=== PATIENT | female | born 1950 | race Caucasian/White ===

== ENCOUNTER 2020-10-08 07:00 | Outpatient (REF) | payer MEDICARE, SELFPAY ==
[2020-10-08 07:45] LABS: MANUAL DIFF FLAG NO
[2020-10-08 07:47] LABS: Basophils Absolute Auto 0.1 X10*3/uL (0.0-0.2); Basophils Percent Auto 1.1 % (0-2); Eosinophils Absolute Auto 0.1 X10*3/uL (0.0-0.4); Eosinophils Percent Auto 1.5 % (0-4); Imm Gran Abs Auto 0.02 X10*3/uL (0.00-0.03); Imm Gran Pct Auto 0.4 % (0.0-0.4); Lymphocytes Absolute Auto 1.4 X10*3/uL (1.2-4.9); Lymphocytes Percent Auto 25.9 % (20-40); Mean Corpuscular HGB Conc 34.1 g/dl (31.0-35.0); Mean Corpuscular Hemoglobin 29.5 pg (27.0-33.0); Mean Corpuscular Volume 86.6 fL (80-98); Mean Platelet Volume 9.9 fL (9.4-12.3); Monocytes Absolute Auto 0.6 X10*3/uL (0.1-1.2); Neutrophils Absolute Auto 3.4 X10*3/uL (2.0-8.3); Neutrophils Percent Auto 61.1 % (45-73); Platelet Count 321 X10*3/uL (160-400); Red Blood Count 5.08 X10*6/uL (4.20-5.50); Red Cell Distribution Width 12.3 % (11.0-16.0); White Blood Count 5.5 X10*3/uL (4.8-10.8)
[2020-10-08 07:57] LABS: Glucose Urine UA NEG (NEG); Leukocyte Esterase Urine NEG (NEG); Nitrite Urine NEG (NEG); PH 5.5 (5.0-8.0); Specific Gravity - Urine 1.025 (1.005-1.025); Urine Blood NEG (NEG); Urine Ketones NEG (NEG); Urine Protein NEG (NEG-TRACE)
[2020-10-08 07:58] LABS: Appearance Urine CLEAR; Color Urine YELLOW
[2020-10-08 08:52] LABS: Alanine Aminotransferase 27 U/L (0-31); Albumin Level 4.4 g/dL (3.5-5.0); Alkaline Phosphatase 74 U/L (39-117); Anion Gap 13 (12-20); Aspartate Amino Transferase 22 U/L (5-31); Bilirubin Total 0.8 mg/dL (0.0-1.0); Blood Urea Nitrogen 19 mg/dL (9-16); Calcium 9.1 mg/dL (8.4-10.2); Carbon Dioxide 27 mmol/L (22-29); Chloride 102 mmol/L (96-108); Cholesterol 171 mg/dL; Estimated Glomerular Filt Rate > 60; Glucose Fasting 105 mg/dL (60-99); HDL Cholesterol 51 mg/dL; LDL Cholesterol Calculated 103 mg/dl; Potassium 4.6 mmol/L (3.3-5.1); Sodium 137 mmol/L (135-145); Triglycerides 86 mg/dL
[2020-10-08 09:14] LABS: Thyroid Stimulating Hormone 1.56 uIU/mL (0.32-4.0)
== END 2020-10-08 07:01 | disposition home or self-care (01) ==
LOC: HO.LAB 07:00
PROVIDERS: Absent Provider Registered Nurse; PCP Internal Medicine; Visit Provider Internal Medicine
DX: Z00.00 Encounter for general adult medical examination without abnormal findings (principal); I10 Essential (primary) hypertension; E78.00 Pure hypercholesterolemia, unspecified; M89.49 Other hypertrophic osteoarthropathy, multiple sites
CPT/HCPCS: 36415; 80053; 80061; 81003; 84443; 85025; 86850; 86900; 86901

== ENCOUNTER → 2021-04-20 10:06 | Outpatient (BNVA) | payer MEDICARE, SELFPAY | PROVIDERS: Visit Provider Advanced Practice Midwife ==

== ENCOUNTER 2021-05-02 07:29 | Outpatient (REF) | payer MEDICARE, SELFPAY ==
--- NOTE | ~2021-05-02 | MM_ITS ---
EXAMINATION: MM SCREENING DIGITAL BREAST TOMOSYNTHESIS, BILATERAL CLINICAL INFORMATION: Screening. Asymptomatic. The lifetime risk of breast cancer based on the Tyrer-Cuzick Model is 3%. COMPARISON: Mammography: April 29, 2020 and studies dating back to February 27, 2014 TECHNIQUE: Digital breast tomosynthesis is performed in both the craniocaudal and mediolateral oblique views along with computer-aided detection (CAD). Synthesized 2D images are generated from the tomosynthesis. FINDINGS: There are scattered areas of fibroglandular density (ACR BI-RADS breast composition Category b). There are no significant masses, abnormal calcifications, or other abnormalities. MM/MM tomosynthesis screening BI IMPRESSION: There are no significant changes from prior study. ASSESSMENT: BI-RADS 1: Negative RECOMMENDATION: Routine annual mammography screening. This patient's information was entered into a reminder system with a target due date for their next mammogram.
== END 2021-05-02 07:30 | disposition home or self-care (01) ==
LOC: HO.MAMMO 07:29
PROVIDERS: PCP Internal Medicine; Visit Provider Internal Medicine
DX: Z12.31 Encounter for screening mammogram for malignant neoplasm of breast (principal)
CPT/HCPCS: 77063; 77067

== ENCOUNTER 2022-05-05 07:25 | Outpatient (REF) | payer MEDICARE, SELFPAY ==
--- NOTE | ~2022-05-05 | MM_ITS ---
EXAMINATION: MM SCREENING DIGITAL BREAST TOMOSYNTHESIS, BILATERAL CLINICAL INFORMATION: Screening. Asymptomatic. The lifetime risk of breast cancer based on the Tyrer-Cuzick Model is 3%. COMPARISON: Mammography: 05/02/2021, 04/29/2020, 04/23/2019 TECHNIQUE: Digital breast tomosynthesis is performed in both the craniocaudal and mediolateral oblique views along with computer-aided detection (CAD). Synthesized 2D images are generated from the tomosynthesis. FINDINGS: There are scattered areas of fibroglandular density (ACR BI-RADS breast composition Category b). There are no significant masses, abnormal calcifications, or other abnormalities. Parenchymal pattern is similar to prior studies. There is no developing density or architectural abnormality. The axilla are unremarkable. Oval dermal lesion again seen overlying the upper left breast on MLO view similar to prior studies. MM/MM tomosynthesis screening BI IMPRESSION: No mammographic evidence of malignancy. ASSESSMENT: BI-RADS 2: Benign RECOMMENDATION: Routine annual mammography screening. This patient's information was entered into a reminder system with a target due date for their next mammogram.
== END 2022-05-05 07:26 | disposition home or self-care (01) ==
LOC: HO.MAMMO 07:25
PROVIDERS: PCP Internal Medicine; Visit Provider Internal Medicine
DX: Z12.31 Encounter for screening mammogram for malignant neoplasm of breast (principal)
CPT/HCPCS: 77063; 77067

== ENCOUNTER 2022-06-02 07:03 | Outpatient (REF) | payer MEDICARE, SELFPAY ==
[2022-06-02 07:18] LABS: MANUAL DIFF FLAG NO
[2022-06-02 07:48] LABS: Appearance Urine Clear; Color Urine Yellow; Glucose Urine UA Negative (Negative); Leukocyte Esterase Urine Negative (Negative); Nitrite Urine Negative (Negative); Specific Gravity - Urine 1.015 (1.005-1.025); Urine Blood Negative (Negative); Urine Ketones Negative (Negative); Urine Protein Negative (Neg-Trace)
[2022-06-02 07:48] LABS: Basophils Absolute Auto 0.1 X10*3/uL (0.0-0.2); Basophils Percent Auto 0.9 % (0-2); Eosinophils Absolute Auto 0.1 X10*3/uL (0.0-0.4); Eosinophils Percent Auto 1.2 % (0-4); Hemoglobin 15.7 g/dl (12.0-16.0); Imm Gran Abs Auto 0.02 X10*3/uL (0.00-0.03); Imm Gran Pct Auto 0.4 % (0.0-0.4); Lymphocytes Absolute Auto 1.4 X10*3/uL (1.2-4.9); Lymphocytes Percent Auto 25.3 % (20-40); Mean Corpuscular HGB Conc 34.1 g/dl (31.0-35.0); Mean Corpuscular Hemoglobin 29.3 pg (27.0-33.0); Mean Platelet Volume 9.4 fL (9.4-12.3); Monocytes Absolute Auto 0.6 X10*3/uL (0.1-1.2); Monocytes Percent Auto 10.6 % (2-11); Neutrophils Absolute Auto 3.5 x10*3/uL (2.0-8.3); Neutrophils Percent Auto 61.6 % (45-73); Platelet Count 312 X10*3/uL (160-400); Red Blood Count 5.35 X10*6/uL (4.20-5.50); Red Cell Distribution Width 12.7 % (11.0-16.0); White Blood Count 5.7 X10*3/uL (4.8-10.8)
[2022-06-02 08:11] LABS: Alanine Aminotransferase 29 U/L (0-31); Albumin Level 4.4 g/dL (3.5-5.0); Alkaline Phosphatase 77 U/L (39-117); Anion Gap 16 (12-20); Aspartate Amino Transferase 25 U/L (5-31); Blood Urea Nitrogen 10 mg/dL (9-16); Calcium 9.6 mg/dL (8.4-10.2); Carbon Dioxide 26 mmol/L (22-29); Chloride 100 mmol/L (96-108); Cholesterol 183 mg/dL; Estimated Glomerular Filt Rate > 60; Glucose Random 104 mg/dL (60-115); HDL Cholesterol 49 mg/dL; LDL Cholesterol Calculated 111 mg/dl; Potassium 4.6 mmol/L (3.3-5.1); Sodium 137 mmol/L (135-145); Total Protein 7.1 g/dL (6.5-8.0); Triglycerides 116 mg/dL
[2022-06-02 08:25] LABS: Estimated Average Glucose 108 mg/dL; Hemoglobin A1c % 5.4 %
[2022-06-02 08:35] LABS: Free T4 (Free Thyroxine) 1.23 ng/dL (0.71-1.85); Thyroid Stimulating Hormone 1.33 uIU/mL (0.32-4.0)
== END 2022-06-02 07:04 | disposition home or self-care (01) ==
LOC: HO.LAB 07:03
PROVIDERS: PCP Internal Medicine; Visit Provider Internal Medicine
DX: I10 Essential (primary) hypertension (principal); M15.9 Polyosteoarthritis, unspecified; E78.00 Pure hypercholesterolemia, unspecified; E03.9 Hypothyroidism, unspecified; R73.01 Impaired fasting glucose
CPT/HCPCS: 36415; 80053; 80061; 81003; 83036; 84439; 84443; 85025

== ENCOUNTER 2022-06-22 11:00 | Outpatient (REF) | payer MEDICARE, SELFPAY ==
[2022-06-24 00:42] LABS: HPV mRNA E6/E7 rflx Not Detected (Not Detected)
== END 2022-06-22 11:01 | disposition home or self-care (01) ==
LOC: HO.LNP 11:00
PROVIDERS: Visit Provider Advanced Practice Midwife
DX: Z01.419 Encounter for gynecological examination (general) (routine) without abnormal findings (principal)
CPT/HCPCS: 87624; 88142

== ENCOUNTER 2023-05-09 07:30 | Outpatient (REF) | payer MEDICARE, SELFPAY | END 2023-05-09 07:31 | disposition home or self-care (01) | LOC: HO.MAMMO 07:30 | PROVIDERS: PCP Internal Medicine; Visit Provider Internal Medicine | DX: Z12.31 Encounter for screening mammogram for malignant neoplasm of breast (principal) | CPT/HCPCS: 77063; 77067 ==

== ENCOUNTER → 2023-05-09 07:30 | Outpatient (BNV) | payer MEDICARE, SELFPAY | PROVIDERS: PCP Internal Medicine; Visit Provider Radiology Diagnostic Radiology | DX: Z12.31 Encounter for screening mammogram for malignant neoplasm of breast (principal) | CPT/HCPCS: 77063; 77067 ==

== ENCOUNTER 2023-06-26 10:37 | Outpatient (AMB) | payer MEDICARE, SELFPAY ==
--- NOTE | 2023-06-26 10:39 | MHC.OFFVIS ---
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 She is doing well with no truck driver's offsider concerns. She is concerned about some numbness in her bilateral feet and legs. She says she has been assessed at [facility] for this, including labs, MRI's, and a brain biopsy, all of which she reports have been normal. This includes her Vitamin D levels. Attempting to eat a healthy diet with calcium and vitamin D and stays active with exercise. Denies any vaginal dryness or irritation. Denies being sexually active. Last pap smear; 06/22/22, normal. Last mammogram; 05/09/23, normal. She is unsure when her last colonoscopy was done. She says this was normal but she has not been contacted to book a new test. Denies any family history of breast, ovarian or colon cancer. She recently had a right NICOLE performed, which she is happy about and she says she is walking more normal now. [facility] Medical History Carpal tunnel syndrome Rosacea HTN (hypertension) Hypothyroid Arthritis Surgical History History of right hip replacement History of eyelid surgery H/O arthroscopy of left knee Hx of cholecystectomy Family History Paternal Grandfather Stomach cancer Father Heart disease Mother HTN (hypertension) Oral cancer Social History Household Members: None Housing: House Alcohol intake: current Alcohol intake frequency: holidays/special occasions only Patient Tobacco Use Status: Former Tobacco user Current occupational status: retired Sexual orientation: Straight/Heterosexual Gender identity: Female Female Reproductive History Menstrual Total pregnancies: 0 Date of last pap smear: 06/22/22 (neg pap and hpv) Date of Mammogram: 05/09/23 (Birad 1) Review of Systems Const All systems reviewed & are unremarkable except as noted in HPI and below Reports as per HPI Eyes Reports no additional complaints ENT Reports no additional complaints Card Reports no additional complaints Resp Reports no additional complaints GI Reports as per HPI and Reports no additional complaints Reports as per HPI Musc Reports no additional complaints Skin/Breast Reports as per HPI Neuro Reports no additional complaints Psych Reports no additional complaints Endo Reports no additional complaints Esequiel/Lymph Reports no additional complaints Aller/Immun Reports no additional complaints Physical Exam Vital Signs: Last Vital Signs BP 118/76 06/26/23 10:40 BMI result Body Mass Index 24.2 Const General: cooperative, healthy appearing, no acute distress, well developed and alert Orientation/consciousness: patient oriented x3 HEENT Head: Yes normal to inspection Eyes General: appearance normal, both eyes and all related structures Neck Neck: Yes normal visual inspection Thyroid: Thyroid normal Chest Chest palpation & inspection: normal inspection of the chest and other (no puckering, dimpling, peau de orange, retraction, discharge, masses) Breast/axilla inspection: normal inspection of the breasts Breast/axilla palpation: normal palpation of the breasts Resp Effort & Inspection: normal respiratory effort GI Inspection: Yes normal to inspection Palpation (GI): Soft to palpation Rectal Exam - Female: deferred General: Yes bladder normal to palpation External Female Exam: normal external appearance and normal appearance of the urethra Speculum Exam - Vagina: normal appearance of the vagina (Atrophic changes), normal palpation and normal vaginal discharge Speculum Exam - Cervix: normal appearance of the cervix and normal palpation Bimanual exam- vagina & uterus: normal bimanual exam, normal palpation, uterine size normal, bladder normal to palpation, normal palpation and non-tender Bimanual Exam- Adnexa, other: no masses Skin General skin exam: no rashes or lesions noted Rashes: no rashes Neuro General: patient oriented x3 Cognition (Neuro): normal cognition Extrem General: Yes normal to inspection Psych Attitude: cooperative Thought process: Normal thought process present Assessment & Plan Assessment & Plan (1) Well woman exam with routine gynecological exam: Code(s): Z01.419 - Encounter for gynecological examination (general) (routine) without abnormal findings Plan: Discussed: Current recommendations for pap smears per ASCCP guidelines. Breast awareness, periodic self breast exams and yearly mammogram. Maintain a healthy lifestyle, well balanced diet including Calcium 1,200 mg and Vitamin D 600 IU daily, and routine exercise. Contact the office with any postmenopausal bleeding. Sign up for the patient portal if not already enrolled. All of her questions and concerns were addressed to the best of my ability. She will return in one year for AG. (2) Neuropathy involving both lower extremities: Code(s): G57.93 - Unspecified mononeuropathy of bilateral lower limbs Plan: Following with [facility]rology for this. She reports having normal Vitamin D levels on her regular labwork at [facility]. Coding Level of Care Code Est Pt Prev Care >65y(89538) Diagnoses Well woman exam with routine gynecological exam Z01.419 Neuropathy involving both lower extremities G57.93
[2023-06-26 10:40] VITALS: BP 118/76; BMI 24.2
== END 2023-06-26 11:13 | disposition home or self-care (01) ==
LOC: HO.HWS 10:37
PROVIDERS: PCP Internal Medicine; Visit Provider Advanced Practice Midwife
DX: Z01.419 Encounter for gynecological examination (general) (routine) without abnormal findings (principal); G57.93 Unspecified mononeuropathy of bilateral lower limbs
CPT/HCPCS: 99397

== ENCOUNTER → 2023-06-26 10:37 | Outpatient (BNVA) | payer MEDICARE, SELFPAY | PROVIDERS: PCP Internal Medicine; Visit Provider Advanced Practice Midwife ==

== ENCOUNTER 2023-07-31 15:32 | Outpatient (REF) | payer MEDICARE, SELFPAY ==
[2023-08-01 12:43] LABS: BV Int Neg Control Negative (Negative); BV Int Pos Control Positive (Positive)
== END 2023-07-31 15:33 | disposition home or self-care (01) ==
LOC: HO.LAB 15:32
PROVIDERS: PCP Internal Medicine; Visit Provider Advanced Practice Midwife
DX: N89.8 Other specified noninflammatory disorders of vagina (principal)
CPT/HCPCS: 87480; 87510; 87660; 99212

== ENCOUNTER 2023-07-31 15:32 | Outpatient (AMB) | payer MEDICARE, SELFPAY ==
[2023-07-31 15:34] VITALS: BP 124/76; BMI 24.2
--- NOTE | 2023-07-31 15:34 | MHC.OFFVIS ---
Intake Vital Signs 07/31/23 15:34 Height 4 ft 11 in Weight 120 lb BMI 24.2 BP 124/76 Intake Visit Reasons: Vaginal itch Intake Note: pt c/o vaginal itching and pelvic pain. 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 She denies any new soaps or laundry detergents, but admits to going to the [employer] recently. She 1st tried alcohol wipes to help, and then Vagisil, neither were beneficial. [facility] Medical History Carpal tunnel syndrome Rosacea HTN (hypertension) Hypothyroid Arthritis Surgical History History of right hip replacement History of eyelid surgery H/O arthroscopy of left knee Hx of cholecystectomy Family History Paternal Grandfather Stomach cancer Father Heart disease Mother HTN (hypertension) Oral cancer Social History Household Members: None Housing: House Alcohol intake: current Alcohol intake frequency: holidays/special occasions only Patient Tobacco Use Status: Former Tobacco user Current occupational status: retired Sexual orientation: Straight/Heterosexual Gender identity: Female Review of Systems Const All systems reviewed & are unremarkable except as noted in HPI and below Reports as per HPI Eyes Reports no additional complaints ENT Reports no additional complaints Card Reports no additional complaints Resp Reports no additional complaints GI Reports as per HPI and Reports no additional complaints Reports as per HPI Musc Reports no additional complaints Skin/Breast Reports as per HPI Neuro Reports no additional complaints Psych Reports no additional complaints Endo Reports no additional complaints Esequiel/Lymph Reports no additional complaints Aller/Immun Reports no additional complaints Physical Exam Vital Signs: Last Vital Signs BP 124/76 07/31/23 15:34 BMI result Body Mass Index 24.2 Const General: cooperative, healthy appearing, no acute distress, well developed and alert GI Inspection: Yes normal to inspection Palpation (GI): Soft to palpation Rectal Exam - Female: deferred Other: Bilateral labial minora erythema. Left labia is swollen with a small fissure in the crease. General: Yes bladder normal to palpation External Female Exam: normal external appearance and normal appearance of the urethra Speculum Exam - Vagina: normal appearance of the vagina, normal palpation, normal vaginal discharge (Scant) and vagina atrophic Speculum Exam - Cervix: normal appearance of the cervix and normal palpation Bimanual exam- vagina & uterus: normal bimanual exam, normal palpation, uterine size normal, bladder normal to palpation, normal palpation and non-tender Bimanual Exam- Adnexa, other: no masses Skin General skin exam: no rashes or lesions noted Rashes: no rashes Neuro Cognition (Neuro): normal cognition Psych Attitude: cooperative Thought process: Normal thought process present Assessment & Plan Assessment & Plan (1) Vaginal itching: Code(s): N89.8 - Other specified noninflammatory disorders of vagina Plan Reviewed skin care: Advised to use a cool compress 3 times a day for 15 minutes. Do not use alcohol to the vulva area. Avoid soaps until symptoms have been resolved. Rinse with warm water only while cleaning. Wear loose cotton clothing. Start Diflucan today and then test patch an area for the vulvar cream, if it turk to discontinue until the healing has started to improve the discomfort with the use of the oral medication. Then attempt a trial cream again in in several days. Return to the office if worsening or no improvement within the next few days. All of her questions and concerns were addressed to the best of my ability and shared decision making. She is agreeable to the plan of care. Orders: Orders Bacterial Vaginosis Panel Today N89.8 - Other specified noninflammatory disorders of vagina Medications: New clotrimazole-betamethasone 1-0.05 % apply externally a thin coat to the area 1 appl topical BID 7 days 45 grams 0RF itching fluconazole 150 mg PO ONCE 1 day 1 tab 0RF personal Coding Level of Care Code Est Pt Level 3 (60641) Diagnoses Vaginal itching N89.8
== END 2023-07-31 16:00 | disposition home or self-care (01) ==
LOC: HO.HWS 15:32
PROVIDERS: PCP Internal Medicine; Visit Provider Advanced Practice Midwife
DX: N89.8 Other specified noninflammatory disorders of vagina (principal)
CPT/HCPCS: 99213

== ENCOUNTER 2024-06-16 11:31 | Outpatient (REF) | payer MEDICARE, SELFPAY ==
--- NOTE | ~2024-06-16 | MM_ITS ---
EXAMINATION: MM SCREENING DIGITAL BREAST TOMOSYNTHESIS, BILATERAL CLINICAL INFORMATION: Screening. Asymptomatic. COMPARISON: Mammography: Comparison is made with available priors TECHNIQUE: Digital breast mammography with tomosynthesis is performed in both the craniocaudal and mediolateral oblique views along with computer-aided detection (CAD). FINDINGS: There are scattered areas of fibroglandular density (ACR BI-RADS breast composition Category b). There are no significant masses, abnormal calcifications, or other abnormalities. MM/MM tomosynthesis screening BI IMPRESSION: No mammographic evidence of malignancy. ASSESSMENT: BI-RADS BI-RADS 1 - Negative RECOMMENDATION: Routine annual mammography screening. 1 year F/U This examination should not preclude the clinical evaluation of a suspicious palpable abnormality. This patient's information was entered into a reminder system with a target due date for their next mammogram. Electronically signed by: Janelle Lal DO 06/24/2024 02:24 PM PAUL
== END 2024-06-16 11:32 | disposition home or self-care (01) ==
LOC: HO.MAMMO 11:31
PROVIDERS: PCP Internal Medicine; Visit Provider Internal Medicine
DX: Z12.31 Encounter for screening mammogram for malignant neoplasm of breast (principal)
CPT/HCPCS: 77063; 77067

== ENCOUNTER → 2024-06-16 11:45 | Outpatient (BNV) | payer MEDICARE, SELFPAY | PROVIDERS: PCP Internal Medicine; Visit Provider Internal Medicine | DX: Z12.31 Encounter for screening mammogram for malignant neoplasm of breast (principal) | CPT/HCPCS: 77063; 77067 ==

== ENCOUNTER 2024-06-18 07:47 | Outpatient (REF) | payer MEDICARE, SELFPAY ==
[2024-06-18 08:11] LABS: MANUAL DIFF FLAG NO
[2024-06-18 08:48] LABS: Basophils Absolute Auto 0.1 X10*3/uL (0.0-0.2); Basophils Percent Auto 0.9 % (0-2); Eosinophils Absolute Auto 0.1 X10*3/uL (0.0-0.4); Eosinophils Percent Auto 1.5 % (0-4); Hemoglobin 15.2 g/dl (12.0-16.0); Imm Gran Abs Auto 0.02 X10*3/uL (0.00-0.03); Imm Gran Pct Auto 0.4 % (0.0-0.4); Lymphocytes Absolute Auto 1.4 X10*3/uL (1.2-4.9); Lymphocytes Percent Auto 27.1 % (20-40); Mean Corpuscular HGB Conc 34.5 g/dl (31.0-35.0); Mean Corpuscular Hemoglobin 29.3 pg (27.0-33.0); Mean Corpuscular Volume 84.9 fL (80.0-98.0); Mean Platelet Volume 9.8 fL (9.4-12.3); Monocytes Absolute Auto 0.5 X10*3/uL (0.1-1.2); Monocytes Percent Auto 9.6 % (2-11); Neutrophils Absolute Auto 3.2 x10*3/uL (2.0-8.3); Neutrophils Percent Auto 60.5 % (45-73); Platelet Count 302 X10*3/uL (160-400); Red Blood Count 5.18 X10*6/uL (4.20-5.50); Red Cell Distribution Width 13.1 % (11.0-16.0); White Blood Count 5.3 X10*3/uL (4.8-10.8)
[2024-06-18 09:08] LABS: Estimated Average Glucose 114 mg/dL; Hemoglobin A1C 153.3871 umol/L; Hemoglobin A1c % 5.6 % (<6.0); Total Hemoglobin (HGBA1C) 4127.5042 umol/L
[2024-06-18 10:09] LABS: Alanine Aminotransferase 36 U/L (0-31); Albumin Level 4.2 g/dL (3.5-5.0); Alkaline Phosphatase 77 U/L (39-117); Anion Gap 12 (12-20); Aspartate Amino Transferase 30 U/L (5-31); Bilirubin Total 0.8 mg/dL (0.0-1.0); Blood Urea Nitrogen 11 mg/dL (9-16); Calcium 9.8 mg/dL (8.4-10.2); Carbon Dioxide 27 mmol/L (22-29); Chloride 104 mmol/L (96-108); Cholesterol 180 mg/dL (<200); Estimated Glomerular Filt Rate > 60; Glucose Random 101 mg/dL (60-115); HDL Cholesterol 57 mg/dL (>40); LDL Cholesterol Calculated 105 mg/dL (<100); Lipase 23 U/L (8-78); Potassium 4.2 mmol/L (3.3-5.1); Sodium 139 mmol/L (135-145); TSH reflex Free T4 1.75 uIU/mL (0.32-4.0); Total Protein 7.1 g/dL (6.5-8.0); Triglycerides 90 mg/dL (<150)
== END 2024-06-18 07:48 | disposition home or self-care (01) ==
LOC: HO.LAB 07:47
PROVIDERS: PCP Internal Medicine; Visit Provider Internal Medicine
DX: I10 Essential (primary) hypertension (principal); R20.0 Anesthesia of skin; R20.2 Paresthesia of skin; E53.8 Deficiency of other specified B group vitamins; R10.31 Right lower quadrant pain; E78.00 Pure hypercholesterolemia, unspecified; R73.01 Impaired fasting glucose; E03.9 Hypothyroidism, unspecified
CPT/HCPCS: 36415; 80053; 80061; 83036; 83690; 84443; 85025

== ENCOUNTER 2024-06-20 06:52 | Outpatient (REF) | payer MEDICARE, SELFPAY ==
--- NOTE | ~2024-06-20 | CT_ITS ---
EXAMINATION: CT ABDOMEN AND PELVIS WITH CONTRAST CLINICAL INFORMATION: Right lower quadrant abdominal pain. COMPARISON: CT abdomen/pelvis dated 10/24/2014. TECHNIQUE: Multidetector volumetric images were obtained from the superior aspect of the liver through the pubic symphysis following administration 85 mL of Omnipaque 350 intravenous contrast. Sagittal and coronal reformatted images were obtained on the technologist's workstation. Oral contrast: Yes This CT examination was performed using dose optimization techniques as appropriate, variously including the following: *Automated exposure control *Adjustment of mA and/or kV according to patient size (this includes techniques or standardized protocols for targeted exams where dose is matched to indication/reason for exam; i.e. extremities or head) *Use of iterative reconstruction technique DLP: 340 mGy-cm FINDINGS: LUNG BASES: The visualized lung bases are unremarkable. LIVER, GALLBLADDER, AND BILIARY TREE: The liver is normal in size, shape, and attenuation. No focal hepatic lesion or biliary ductal dilatation is present. Status post cholecystectomy. PANCREAS: Unremarkable. SPLEEN: Unremarkable. ADRENAL GLANDS: Unremarkable. KIDNEYS AND URETERS: The kidneys are normal in size, shape, and attenuation. No hydronephrosis, hydroureter, or calculi seen. Redemonstration of simple bilateral renal cysts, increased in size when compared to the prior CT. Findings are not clinically significant and no dedicated follow-up imaging is recommended. No enhancing renal parenchymal lesion. No perinephric stranding. BLADDER: Partially visualized due to streak artifact. No significant abnormality. GASTROINTESTINAL TRACT: Oral contrast reaches the transverse colon. Kala-ty-ximrixji stool burden. No small or large bowel obstruction. No bowel wall thickening or inflammatory change. Appendix not identified, however, no right lower quadrant inflammatory change to suggest acute appendicitis. PERITONEAL CAVITY: No intra-abdominal free air or free fluid. No intra-abdominal mass or organized fluid collection/abscess formation. ABDOMINAL WALL: No significant hernia is appreciated. LYMPH NODES: No lymphadenopathy. VASCULAR: Unremarkable. PELVIC VISCERA: Uterus poorly visualized due to streak artifact. No pelvic mass or fluid collection. OSSEOUS STRUCTURES: Right hip arthroplasty without evidence of complication. Grade 1 anterolisthesis of L4 on L5 with bilateral facet arthropathy, increased when compared to the prior examination. No acute fracture. CT/CT abdomen pelvis w IV con IMPRESSION: 1. Ctsv-tw-iibyhgir stool burden. No small or large bowel obstruction. No bowel wall thickening or inflammatory change. Appendix not identified, however, no right lower quadrant inflammatory change to suggest acute appendicitis. 2. No intra-abdominal mass, lymphadenopathy, or ascites. 3. Grade 1 anterolisthesis of L4 on L5 with bilateral facet arthropathy, increased when compared to the prior examination. Fleischner guidelines were followed. Electronically signed by: Eliot Green MD 06/20/2024 11:24 AM [facility]
[2024-06-20] MEDS: iohexoL 350 MG/ML 75 ML INFUS..BTL 85 ML IV (09:35)
[2024-06-20] MEDS: Barium Sulfate Oral (Mocha) 450 ML ORAL.SUSP 900 ML PO (09:37)
== END 2024-06-20 06:53 | disposition home or self-care (01) ==
LOC: HO.CT 06:52
PROVIDERS: PCP Internal Medicine; Visit Provider Internal Medicine
DX: R10.31 Right lower quadrant pain (principal)
CPT/HCPCS: 74177; Q9967

== ENCOUNTER 2024-07-01 10:19 | Outpatient (AMB) | payer MEDICARE, SELFPAY ==
[2024-07-01 10:21] VITALS: BP 128/62
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
== END 2024-07-01 11:30 | disposition home or self-care (01) ==
PROVIDERS: PCP Internal Medicine; Visit Provider Advanced Practice Midwife
DX: R10.2 Pelvic and perineal pain (principal)
CPT/HCPCS: 99213

== ENCOUNTER → 2024-07-01 10:19 | Outpatient (BNVA) | payer MEDICARE, SELFPAY | PROVIDERS: PCP Internal Medicine; Visit Provider Advanced Practice Midwife | DX: R10.2 Pelvic and perineal pain (principal) | CPT/HCPCS: 99212 ==

== ENCOUNTER 2024-07-22 10:28 | Outpatient (REF) | payer MEDICARE, SELFPAY ==
--- OUTSIDE RECORDS SUMMARY | 2024-07-23 19:50 | XMS_ITS ---
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 Seen sooner. * Medical History:? Objective: * Vitals:? Assessment: Plan: * Treatment: * Images: * The named appointment provid er may or may not be the originator of this progress note, and it is not deemed complete until electronically signed by the appointment provider. Sign off status: Pending * Provider:?Baldomero Peñaloza DPM Date:?2023 Generated for Jose san/Arnold/eTransmitting on:?07/23/2024 07:50 PM EST
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
--- OUTSIDE RECORDS SUMMARY | 2024-07-23 19:51 | XMS_ITS | Data Portability ---
Author Organization [facility], [facility] Address [address] [place] [address] Care Team Providers Care Hot Car Charger Name Role Phone OTTO ERIC Primary Care Provider [phone] Assessment Encounter Date Assessment Date Assessment LastModified by Organization Details LastModified Time 11/20/2023 11/20/2023 X-RAYS: Previous x-ray images were reviewed, demonstrating very small posterior calcaneal traction enthesophyte at the Achilles insertion. There is no evidence of fracture or plantar calcaneal exostosis. MRI: Her right ankle MRI images from 10/27/2023 were independently reviewed demonstrating a small lateral calcaneal tuberosity exostosis without fracture, bone marrow edema or soft tissue mass. The Achilles tendon and plantar fascia appeared normal. The MRI is otherwise unremarkable. IMPRESSION: Right plantar heel fat pad atrophy, lateral calcaneal exostosis PLAN: I discussed these findings with Neli once again. I reassured her that her MRI was essentially unremarkable. She is doing much better today. She will continue with her Viscoheel insert, topical lidocaine, supportive shoes and avoidance of pressure over this area. She would like to follow-up as needed if her pain worsens. She would like to avoid surgery if possible but if conservative measures fail, we may consider a plantarlateral calcaneal exostectomy. I discussed this with her today. All question were answered. She understands and agrees with this plan. [email or web address] Not available 11/20/2023 10:32:57 Plan of Treatment Reminders Order Date Submit Date Provider Last Modified By Organization Details Last Modified Time Details Appointments None record ed. Lab None record ed. Referral None record ed. Procedures None record ed. Surgeries None record ed. Imaging None record ed. Medication Orders None record ed. Patient TargetsNo targets recorded. Patient InstructionsNo instructions recorded. Reason for Referral None Reported. Results Created Date Observation Date Name Description Value Unit Range Abnormal Flag Note LastModifiedBy Organization Detail LastModifiedTime 10/30/19 24 10/27/2023 MRI, ankle , w/o contr ast [facility] Access ion Number : [id number] Patien t Name: Hua Huertaa fabiano Record Number : [id number] Date of : 1949 Date of Exam: 2023 Referr ing Physic alexy: [facility] [address], [address] [place] [address] Exam: MR Ankle (C-) CPT 83012 - Right Room Descri ption: [facility] Pion 3T MRI RIGHT ANKLE Clinic al Histor y: Pain. Findin gs: The anteri or and ornamental bronze worker ior tibiof ibular and the anteri or and ornamental bronze worker ior talofi bular ligame nts are intact . The deltoi d and calcan eofibu lar ligame nts are intact . The ornamental bronze worker ior tibial is, flexor digito rum, and flexor halluc is longus tendon s are intact . The perone us longus and brevis tendon s are intact . The anteri or tibial is, extens or halluc is, and extens or digito rum tendon s are intact . The planta r fascia is intact and within normal limits . The sinus tarsi is within normal limits . The Achill es tendon is intact and within normal limits Impres anel: No ligame nt or tendon injury . Planta r fascia is intact and within normal limits . No fractu re or marrow edema. Electr onical ly Signed By: Manuel Vieira [email or web address] [facility] ([facility]) [address], [place], [address], 10/30/2023 10:48:11 04/11/20 24 10/15/2022 imagi ng/di agnos suzanna resul t No observ ation record ed. [email or web address] Not Available 03/15 05:06:07 04/11/20 24 12/02/2022 imagi ng/di agnos tic resul t No observ ation record ed. [email or web address] Not Available 03/15 05:06:21 04/11/20 24 09/27/2020 imagi ng/di agnos tic resul t No observ ation record ed. [email or web address] Not Available 03/15 05:06:52 04/11/20 24 07/30/2021 imagi ng/di agnos tic resul t No observ ation record ed. [email or web address] Not Available 03/15 05:07:31 Result Notes None recorded. Problems Name Problem SNOMED Code Status Onset Date Resolution Date Notes Provider Name and Address Organization Details Recorded Time No complaints [id number] Active Status : 'A'; Not Available [facility] 09:22:13 Problem Notes None recorded. Procedures Surgical History None recorded. Imaging Results Imaging Date Name Status LastModified by Organiz ation Details LastModified Time 10/27/2023 MRI, ankle, w/o contrast completed [email or web address] [facility] ([facility]) [address], [place], [address], 10/30/2023 10:48:11 10/15/2022 imaging/diagn ostic result completed Information not available 04/11/2024 05:06:07 12/02/2022 imaging/diagn ostic result completed Information not available 04/11/2024 05:06:21 09/27/2020 imaging/diagn ostic result completed Information not available 04/11/2024 05:06:52 07/30/2021 imaging/diagn ostic result completed Information not available 04/11/2024 05:07:31 Procedure Notes None recorded. Medical Equipment None Reported. Allergies Allergen ID Allergen Name Allergen Category Reaction Reaction Severity Criticality Documentation Date Start Date Code Code System Note Provider Name and Address Organization Details Recorded Time 01615 Medicinal product containin g penicilli n and acting as antibacte rial agent (product) medicatio n Not available Not available Not available 10/15/20232006 81487 05 SNOMED Not Available [facility] 12:08:32 48880 Substance with sulfonami de structure and antibacte rial mechanism of action (substanc e) medicatio n Not available Not available Not available 10/15/20232006 16104 8003 SNOMED Not Available [facility] 12:08:32 Medications Name Sig Start Date Stop Date Status Note LastModified by Organization Details LastModified Time atorvastatin 20 mg tablet active Not Available Not Available Not Available clindamycin HCl 300 mg capsule TAKE 2 CAPSULES 1/2 HOUR BEFORE APPOINTMENT active Not Available Not Available Not Available fluconazole 150 mg tablet TAKE 1 TABLET BY MOUTH active Not Available Not Available No t Available lisinopril 20 mg tablet active Not Available Not Available Not Available clobetasol 0.05 % topical cream APPLY TWICE DAILY TO PINK, SCALY AREAS ON BODY (NOT FACE) NEEDED FOR UP TO 2 WEEKS AT A TIME. active Not Available Not Available No t Available tramadol 50 mg tablet TAKE 1 TABLET BY MOUTH EVERY 6 HOURS NEEDED FOR SEVERE PAIN. DO NOT DRIVE TAKING THIS MEDICATION active Not Available Not Available N ot Available lorazepam 0.5 mg tablet active Not Available Not Available Not Available aspirin 325 mg tablet,delay ed release TAKE ONE TABLET TWICE A DAY FOR 30 DAYS ONLY. MEDICATION TO BE STARTED AFTER SURGERY. active Not Available Not Available No t Available pantoprazole 40 mg tablet,delay ed release TAKE 1 TABLET EVERY DAY active Not Available Not Available No t Available clotrimazole -betamethaso ne 1 %-0.05 % topical cream APPLY A THIN COAT EXTERNALLY TO AFFECTED AREA TWICE A DAY FOR 7 DAYS active Not Available Not Available No t Available Synthroid 75 mcg tablet active Not Available Not Available N ot Available gabapentin 100 mg capsule active Not Available Not Available Not Available fluticasone propionate 50 mcg/actuatio n nasal spray,suspen anel 2 SPRAYS BY NASAL ROUTE 2 (TWO) TIMES A DAY NEEDED. active Not Available Not Available N ot Available nicotine 7 mg/24 hr daily transdermal patch APPLY 1 PATCH TOPICALLY DAILY active Not Available Not Available No t Available oxycodone 5 mg tablet TAKE 1 TO 2 TABLETS BY MOUTH EVERY 4 HOURS NEEDED FOR SEVERE PAIN. active Not Available Not Available No t Available Prempro Prempro 0.3-1.5MG Tablet 2006 active Statu s: 'Curr ent'; Not Available Not Available Not Available lidocaine 5 % topical ointment active Not Available Not Available Not Available Vitals Date Recorded Body height Body mass index (BMI) Body weight Provider Name and Address Organization Details Last Updated DateTime 11/20/2023 149.86 cm 24.6 kg/m2 28904.27 g AVELINO Delgado [place] - [facility] 11/20/2023 10:05:40 Social History None recorded. Functional Status None recorded. Mental Status None recorded. Family History Nothing Reported. Medical History No medical history recorded. Gynecological HistoryNo gynecological history recorded. Obstetrics History GPAL:G 0 P 0 0 0 0 Past Encounters Encounter ID Performer Location Encounter Start Date Encounter Closed Date Diagnosis/Indication Diagnosis SNOMED-CT Code Diagnosis ICD10 Code [id number] MD Romana Mccarthy [address] [place] [address] 11/20/2023 09:54:26 12/13/2023 19:49:53 Bone spur of right foot 9094547563 72709 M25.774 Health Concerns Section Related Observation LastModified by Organization Detai ls LastModified Time None Recorded Concern Status LastModified by Organization Details LastModified Time None Recorded Advance Directives Directive None Recorded Payers Encounter Date Sequence Insurance Name Policy Number Policy Collins Covered Member ID Collins Member ID Guarantor Name 11/20/2023 1 [facility]: MEDICARE PPO BLUE (MEDICARE REPLACEMENT PPO) [id number] Neli King [id number] Neli King Notes Date Note Type Note Provider Name and Address Organization Details Recorded Time 11/20/2023 text/html Neli is a ve ry pleasant 73-year-old woman seen today in follow-up who has experienced approximately 10 weeks of insidious onset right plantarlateral heel pain. I last saw her 4 weeks ago. She denies any injury or inciting event but this started after wearing a pair of slippers with poor padding. She does a lot of walking for exercise following right total hip arthroplasty by Dr. Rincon. She has done well from the standpoint of this surgery but developed diffuse tingling and numbness throughout her body following the procedure without clear neurologic examination. She suffered a right nondisplaced calcaneus fracture in 2006. She wears supportive sneakers with Viscoheel insert. She finds topical lidocaine to be beneficial and is trying to sleep and drive without any pressure over the lateral calcaneus. She is here today for MRI review. She denies any posterior heel pain. She is happy with her improvement. She also experiences some anterolateral ankle pain. Past family, medical, social history and review of systems has been reviewed, updated and is located in the patient? s chart. She lives alone. Ryan Rushing MD [address] [place] [address] [address], [place], [address], [facility] 11/20/2023 10:44:23 OBGyn Episode No OBEpisode recorded.
--- OUTSIDE RECORDS SUMMARY | 2024-07-23 19:51 | XMS_ITS ---
Author Organization [facility] Address [address] [place] [address] Care Team Providers Care Marketing Traffic Coordinator Name Role Phone Sameer Dimas MD Primary Care Provider Baldomero Montes Unavailable [phone] Allergies Allergen (clinical drug ingredient) Drug/Non Drug Allergy documented on EMR Reaction Allergy Type Onset Date Status Penicillin Unknown Drug Allergy Active Substance with sulfonamide structure and antibacterial mechanism of action (substance) Sulfa Antibiotics Unknown Drug Allergy Active REASON FOR VISIT Dr Brizuela Medications Medication SIG (Take, Route, Frequency, Duration) Notes Start Date End Date Status Move Free Joint [facility] Advance Not-Taking metroNIDAZOLE Not-Skip moise Meloxicam 7.5 MG 1 tablet Once a day Active Multivitamins Not-Ta Calcium + D Not-Taki ng Levothyroxine Sodium 75 MCG 1 tablet in the morning on an empty stomach Once a day Active Fluticasone Propionate 50 MCG/ACT 1 spray in each nostril Nasally Once a day Active Clobetasol Propionate Active Lisinopril 20 MG 1 tablet Once [...] tobacco user? No Vital Signs Height 5ft in 12/27/2023 Weight 122 lbs 12/27/2023 BMI 23.82 kg/m2 12/27/2023 Encounters Encounter Location Date Provider [facility] [address] [address] 12/27/2023 Baldomero Peñaloza Plan Of Treatment No Information Progress Notes * LORINeli ALEXDOB:1949 (74 yo F)Acc No.[id number]:12/27/2023 Progress Notes Patient:?Neli RECINOS Provider:?Baldomero Peñaloza DPM :1950???Age:73 Y???Sex:Female D ate:12/27/2023 Address:[address] [place], [place] [address] Pcp:Sameer Dimas MD Subjective: * Chief Complaints: * ???1. Dr Brizuela. * ROS:?General/Constitutional:?Nausea?denies.?Vomiting?denies.?Hunger Thirst?denies.?Loss appetite?denies.?Chills?denies.?Fatigue?denies.?Fever?denies.?Night Sweats?denies.?Unexplained weight loss?denies.?Unexplained weight gain?denies.?HEENTM:?Dentures?denies.?Dizziness?denies.?Glasses/contacts?admits.?Retinopathy?de nies.?Blurred/double vision?denies.?TMJ?denies.?Discharge/drainage?denies.?Implants?denies.?Sore throat?denies.?Dental implants?admits.?Hard of hearing ?denies.?Difficulty chewing/swallowing/speaking?denies.?Nose bleeds?denies.?Sore mouth?denies.?Respiratory:?On Oxygen?denies.?Pneumonia/pleurisy?denies.?Bronchitis?denies.?Emphysema?denies.?C oughing?denies.?Cough blood?denies.?Shortness of breath?denies.?Wheezing?denies.?Cardiovascular:?Pacemaker?denies.?MVP?denies.?WPW?denies.?CHF?denies.?Heart attack?denies.?Septal defect?denies.?Rapid beat?denies.?Chest pain ?denies.?Atrial Fib.?denies.?Murmur/Palpitations?denies.?Gastrointestinal:?Hemorrhoids?denies.?Stomach/Abdominal pain?denies.?Dark blood stool?denies.?Irritable bowel ?denies.?Constipation?denies.?Diarrhea?denies.?Hematology:?Swelling?denies.?Clots?denies.?Varicose Veins?denies.?Bruising?denies.?Bleeding problem?denies.?Genitourinary:?Blood urine?denies.?Frequent/Painfu/urination/bladder control?denies.?Kidney stones?denies.?Infection (UTI)?denies.?Nephropathy?denies.?sex trans dis (STD)?denies.?Prostate?denies.?Musculoskeletal:?Hammertoes?denies.?Bunions?denies.?Back Pain?denies.?Muscle Cramps/ Resting?denies.?Muscle cramps / walking?denies.?Generalized aches and pains?denies.?Weakness?denies.?Integ.:?Orellana?denies.?Scars?denies.?Corns/calluses?denies.?Ingrown nails?denies.?Painful nails?denies.?Open Sores?denies.?Rashes?denies.?Neurologic:?Difficulty sleeping?denies.?Brain disorder?denies.?Numbness?denies.?Balance trouble?denies.?Confusion?denies.?Fainting/blackouts?denies.?Tingling?admits.?Tr emors?denies.? * Medical History:?Arthritis, Broken bones, Chicken pox, Hypercholesterolemia, Hypertension, Measles, Mumps, Psoriasis, Sinus conditions, Thyroid disorder, Warts, Numbness, CAD (Cholesterol), Covid-19, Gall bladder problems, High blood pressure, Psoriasis/eczema, Sciatica, Sinusitis, Hypothyroidism. * Surgical History:?gall bladd er 12/29/94, arthroscopic knee surgery 01/05/00, blepheroplasty 07/16/07, finger surgery 01/15/09, right hip replacement 02/28/23. * Family History:?Mother: dece ased, foot problems, [...] single, . 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 * Medications:?Taking Atorvast atin Calcium , Taking Clindamycin HCl 300 MG Capsule 1 capsule Orally every 12 hrs , Notes to Pharmacist: prn dental, Taking Clobetasol Propionate , Taking Fluticasone Propionate 50 MCG/ACT Suspension 1 spray in each nostril Nasally Once a day , Taking LORazepam 0.5 MG Tablet 1 tablet at bedtime as needed Once a day , Taking Lisinopril 20 MG Tablet 1 tablet Once a day , Taking Levothyroxine Sodium 75 MCG Tablet 1 tablet in the morning on an empty stomach Once a day , Taking Meloxicam 7.5 MG Tablet 1 tablet Once a day , Not-Taking/PRN Calcium + D , Not-Taking/PRN Multivitamins , Not-Taking/PRN Move Free Joint [facility] Advance , Not-Taking/PRN metroNIDAZOLE * Allergies:?Penicillin, Sulfa Antibiotics. Objective: * Vitals:?Ht: 5ft, Wt:122, BMI :23.82, Shoe size: 6.5-7, Ht-cm: 152.4 cm, Wt-k.34 kg. Assessment: Plan: * Treatment: * Images: * The named appointment provid er may or may not be the originator of this progress note, and it is not deemed complete until electronically signed by the appointment provider. Sign off status: Pending * Provider:?Baldomero Peñaloza DPM Date:?2023 Generated for Jose san/Arnold/Jose on:?07/23/2024 07:50 PM EST
== END 2024-07-22 10:29 | disposition home or self-care (01) ==
LOC: HO.US 10:28
PROVIDERS: PCP Internal Medicine; Visit Provider Advanced Practice Midwife
DX: R10.2 Pelvic and perineal pain (principal)
CPT/HCPCS: 76830; 76856

== ENCOUNTER 2024-08-21 12:37 | Outpatient (AMB) | payer MEDICARE, SELFPAY ==
--- NOTE | 2024-08-21 12:37 | A.OFFVIS_ITS ---
Intake Visit Reasons: TV Ultrasound Results Allergies Sulfa (Sulfonamide Antibiotics) [SULFA (SULFONAMIDE ANTIBIOTICS)] Allergy (Severe, Verified 08/21/24 12:38) THROAT CLOSED Penicillins [PENICILLINS] Allergy (Intermediate, Verified 08/21/24 12:38) HIVES HPI Comments Details: Tele [place] visit 12:45-12:53 I spent 8 minutes speaking with the patient on the phone plus an additional 5 minutes reviewing the chart and 5 minutes updating the medical record for a total of 18 minutes. Patient was not able to access a video screen for the call. Patient presents via phone to discuss: Ultrasound findings, long history of abdominal sensitivity (not pain currently) around her umbilicus, she reports it's more like a nerve sensation. Has a GI evaluation soon. [facility] Medical History (Updated 07/01/24 @ 10:51 by Alida Jamison CNM) Pelvic pain Carpal tunnel syndrome Rosacea HTN (hypertension) Hypothyroid Arthritis Surgical History History of right hip replacement History of eyelid surgery H/O arthroscopy of left knee Hx of cholecystectomy Family History Paternal Grandfather Stomach cancer Father Heart disease Mother HTN (hypertension) Oral cancer Social History Household Members: None Housing: House Alcohol intake: current Alcohol intake frequency: holidays/special occasions only Patient Tobacco Use Status: Former Tobacco user Current occupational status: retired Sexual orientation: Straight/Heterosexual Gender identity: Female Telehealth Telehealth Telehealth Platform: Telephone Location of provider rendering services: practice address Location of patient: address on file Patient Identification confirmed using: Name, : Yes Telehealth method: voice only Patient verbally consented to treatment: Yes Patient verbally consented to billing insurance company: Yes Patient informed of any privacy concerns related to visit: Yes Results Reviewed Results Reviewed: [address] [address] Ultrasound Report Signed Patient: Neli King MR#: [id number] : 1950 Acct:[id number] Age/Sex: 74 / F ADM Date: 07/22/24 Loc: HO.US Attending Dr: Alida Jamison CNM Ordering Physician: Alida Jamison CNM Date of Service: 07/22/24 Procedure(s): US pelvic and transvaginal Accession Number(s): [id number] cc: Sameer Dimas MD; Alida Jamison CNM~ EXAMINATION: US PELVIS CLINICAL INFORMATION: Postmenopausal, pelvic and perineal pain. COMPARISON: CT abdomen and pelvis of 06/20/2024. TECHNIQUE: Ultrasound of the pelvis is performed using both transabdominal and transvaginal transducers along with Doppler. Transvaginal imaging is performed due to inadequate visualization transabdominally. FINDINGS: Uterus is anteverted and measures 4.4 x 1.2 x 2.1 cm. Left ovary not visualized. No significant free fluid. Endometrial thickness is 0.07 cm. Right ovary measures 1.3 x 1.0 x 0.9 cm, volume 0.61 mL. US/US pelvic and transvaginal IMPRESSION: 1. Endometrial thickness is 0.07 mL. 2. Left ovary not visualized. 3. Limited visualization due to bowel gas. Electronically signed by: Bee Adkins MD 08/17/2024 07:29 PM EST Dictated By: Bee Adkins MD Signed By: <Electronically signed by Bee Adkins MD in OV> 08/17/24 192 DD/ 1100 TD/TT: 07/22/24 1115 Roller Shop Supervisor: Assessment & Plan Assessment & Plan (1) Encounter to discuss test results: Code(s): Z71.2 - Person consulting for explanation of examination or test findings Plan Discussed: Ultrasound findings unremarkable limited view of left ovary. Endometrial lining normal range for postmenopausal. Advised to follow up with her for further evaluation of her abdominal concerns. Schedule annual exam. Call if there is any user experience manager concerns or any vaginal bleeding for immediate care. The patient expressed understanding and agreement with the plan of care. All of her questions and concerns were addressed to the best of my ability. This note is constructed using voice recognition software. While every effort has been made to ensure accuracy, telecommunications linesworker errors may have been included. Coding Level of Care Code Tele Est Pt Level 2 (35181) Diagnoses Encounter to discuss test results Z71.2
--- OUTSIDE RECORDS SUMMARY | 2024-08-21 13:44 | XMS_ITS ---
Author Organization [facility] Address [address] [place] [address] Care Team Providers Care Residential Lawn Specialist Name Role Phone Wing BURGOS, Sameer Primary Care Provider Unavaila Baldomero Valentine Unavailable [phone] REASON FOR VISIT seen sooner Encounters Encounter Location Date Provider Diagnosis [address] [address] 03/27/2024 Baldomero Peñaloza Plan Of Treatment No Information Progress Notes * Neli RECINOSDOB:1949 (74 yo F)Acc No.[id number]:03/27/2024 Progress Notes Patient:?Neli RECINOS Provider:?Baldomero Peñaloza DPM :1950???Age:74 Y???Sex:Female D ate:03/27/2024 Address:[address] [place], [place] [address] Pcp:Sameer Dimas MD Subjective: * Chief Complaints: [...] Peñaloza DPM Date:?2023 Generated for Jose san/Arnold/eTransmitting on:?08/21/2024 01:44 PM EST
--- OUTSIDE RECORDS SUMMARY | 2024-08-21 13:45 | XMS_ITS ---
Author [facility] Address [address] [place] [address] Care Team Providers Care Brim Molder Name Role Phone Sameer Dimas MD Primary Care Provider Baldomero Montes Unavailable [phone] Allergies Allergen (clinical drug ingredient) Drug/Non Drug Allergy documented on EMR Reaction Allergy Type Onset Date Status Penicillin Unknown Drug Allergy Active Substance with sulfonamide structure and antibacterial mechanism of action (substance) Sulfa Antibiotics Unknown Drug Allergy Active REASON FOR VISIT Dr Brizuela Medications Medication SIG (Take, Route, Frequency, Duration) Notes Start Date End Date Status Move Free Joint [facility] Advance Not-Taking metroNIDAZOLE Not-Skip moise Meloxicam 7.5 [...] 12/27/2023 Encounters Encounter Location Date [facility] [address] [address] 12/27/2023 Baldomero Peñaloza Plan Of Treatment No Information Progress Notes * LORINeli ALEXDOB:1949 (74 yo F)Acc No.[id number]:12/27/2023 Progress Notes Patient:?Neli RECINOS Provider:?Baldomero Peñaloza DPM :1950???Age:73 Y???Sex:Female D ate:12/27/2023 Address:[address] [place], [place] [address] Pcp:Sameer Dimas MD Subjective: * Chief Complaints: [...] Peñaloza DPM Date:?2023 Generated for Jose san/Arnold/Jose on:?08/21/2024 01:45 PM EST
--- OUTSIDE RECORDS SUMMARY | 2024-08-21 13:45 | XMS_ITS ---
Author Organization [facility] Address [address] [place] [address] Care Team Providers Care Car Dumper Operator Name Role Phone Sameer Dimas MD Primary Care Provider Unavaila Baldomero Valentine Unavailable [phone] Jonathan Valero Unavailable [phone] Allergies Allergen (clinical drug ingredient) Drug/Non Drug [...] Not-Skip moise Calcium + D Not-Taki Move [facility] Advance Not-Taking metroNIDAZOLE Not-Skip moise Meloxicam [...] 12/28/2023 Encounters Encounter Location Date [facility] [address] 12/28/2023 Jonathan Valero Plantar fascial fibromatosis M72.2 [...] pin-point bleeding margins with sterile surgical blade (12832), silver nitrate chemocautery applied Progress Notes * Neli RECINOSDOB:1949 (73 yo F)Acc No.[id number]:12/28/2023 Progress Notes Patient:?Neli Recinos Provider:?Jonathan Valero DPM :1950???Age:73 Y???Sex:Female D ate:12/28/2023 Address:[address] [place] [id number] Pcp:Sameer Dimas MD Subjective: * Chief Complaints: [...] pin-point bleeding margins with sterile surgical blade (29964), silver nitrate chemocautery applied.? * Procedure Codes:?79799 Wart Destruction, 1-14, Modifiers: XS * Preventive [...] DPM Date:? 024 Generated for Jose san/Arnold/Jose on:?08/21/2024 01:44 PM EST History and Physical Notes * [...] ORIENTED: person,place, and ti me Vascular DP PULSES (B): 2/4, B/L PT PULSES (B): 2/4, B/L CAPILLARY FILL TIME: 3 secs. per digit, B/L TEMPERTURE GRADIENT (C): warm to cool, p roximal to distal, B/L TROPHIC CONDITION-TEXTURE/ELASTICITY/TURGOR/HAIR GROWTH (B): normal, B/L EDEMA (C): no edema
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
== END 2024-08-21 13:07 | disposition home or self-care (01) ==
LOC: HO.HWS 12:37
PROVIDERS: PCP Internal Medicine; Visit Provider Advanced Practice Midwife
DX: Z71.2 Person consulting for explanation of examination or test findings (principal)
CPT/HCPCS: 98966

== ENCOUNTER → 2024-08-21 12:37 | Outpatient (BNVA) | payer MEDICARE, SELFPAY | PROVIDERS: PCP Internal Medicine; Visit Provider Advanced Practice Midwife ==

== ENCOUNTER 2025-06-22 11:01 | Outpatient (REF) | payer MEDICARE, SELFPAY ==
--- OUTSIDE RECORDS SUMMARY | 2025-06-22 13:20 | XMS_ITS | Encounter Summary ---
Author Organization [facility] Address [address] [place] [address] Phone Care Team Providers Care Manager Strategic Sourcing Name Role Phone Sameer Dimas MD Primary Care Provider [phone] Encounter Details Date Type Department Care Team (Late st Contact Info) Description 03/11/2025 Telephone [facility] [employer] Internal Medicine [address] [place], [place] [phone] Sameer Dimas MD [address], [place] [phone] [email or web address] Social History Tobacco Use Types Packs/Day Years Used Date Smoking Tobacco: Some Days Cigarettes Started: 1961 Passive Smoke Exposure: Never Smokeless Tobacco: Never Comments:1-3 cigarettes QD ( 06/30/22) uses to smoke 1/2 to 1 ppd 40 years Quit 02/2023, started up again 05/2023 some day smoker 1 or none per day-noted 09/07/23 Smokes 7 cigarettes a week-noted 12/10/23, 0-2 cigarettes QD-noted 06/02/24 Alcohol Use Standard Drinks/Week Comments Yes 0 (1 standard drink = 0.6 oz pure alcohol) social drinker; 3 drinks a month, max, if that Child or Family Care Answer Date Record ed Do you have problems with on e of the following making it difficult for you to work, study, or receive health care? No 06/09/2022 Education Answer Date Recorded Are you interested in more education? Not on rosalina e 06/09/2024 Are you concerned about learning? Not on file 06/09/2024 No 06/09/2024 No 06/09/2024 Food Answer Date Recorded Within the past 6 months we worried whether our food would run out before we got money to buy more. Never True 06/09/2022 Within the past 6 months the food we bought just didn't last and we didn't have enough money to get more. Never True Residential Stability Answer Date Recor ded What is your housing situation today? I have juan castrejon 06/09/2022 How many times have you move d in the past 12 months? Zero (I did not move) 06/09/2022 Paying for Meds Answer Date Recorded Do you have trouble paying for medicines? No 06/09/2022 Paying Utility Bills Answer Date Record ed Do you have trouble paying your heating or elect ricity bill? No 06/09/2022 Transportation Answer Date Recorded Has the lack of transportati on kept you from medical appointments or from getting medications? No 06/09/2022 Unemployment Answer Date Recorded Are you currently unemployed or working on a part-time or temporary basis, and looking for work? No 06/09/2022 Digital Access Answer Date Recorded No 01/06/2023 No 01/06/2023 Reliable internet access at home? Not on file 01/06/2023 Device with a working camera? Not on file Intimate Partner Violence Answer Date R ecorded Denied Basic Needs Not on file 06/12/2024 In the past 12 months have y ou been in a relationship with a person who hurts, threatens, or tries to control you? No 06/12/2024 Worried food would run out Not on file 06/12 In the past 12 months have y ou been in a relationship with a person who hurts, threatens, or tries to control you? No 06/12/2024 Comments No Sex and Gender Information Value Date Recorded Sex Assigned at Female 05/15/2023 4:53 PM EDT Legal Sex Female 7:53 PM EST Gender Identity Female 05/15/2023 4:53 PM EDT Sexual Orientation Straight 05/15/2023 4: 53 PM EDT documented as of this encounter Plan of Treatment Upcoming Encounters Date Type Department Care Team (Late st Contact Info) Description 07/03/2025 1:30 PM EST Office Visit [facility] Internal Medicine [address] [place] [address] Sameer Dimas MD [address] [place] [address] [email or web address] documented as of this encounter Visit Diagnoses Not on filedocumented in this encounter Additional Health Concerns Assessment Noted Time PHQ-2 Depression Total Score: 0 06/12/20 24 1:15 PM EDT documented as of this encounter Care Teams Manager Strategic Sourcing Relationship Specialty Start Date End Date Sameer Dimas MD [address] [place] [address] PCP - General Internal Medicine 06/15/17 documented as of this encounter Additional Source Comments The information contained in this document represents components of the legal health record. It is not the complete legal health record.[facility]
== END 2025-06-22 11:02 | disposition home or self-care (01) ==
LOC: HO.MAMMO 11:01
PROVIDERS: PCP Advanced Practice Midwife; Visit Provider Internal Medicine
DX: Z12.31 Encounter for screening mammogram for malignant neoplasm of breast (principal)
CPT/HCPCS: 77063; 77067

== ENCOUNTER → 2025-06-22 11:15 | Outpatient (BNV) | payer MEDICARE, SELFPAY | PROVIDERS: PCP Advanced Practice Midwife; Visit Provider Internal Medicine | DX: Z12.31 Encounter for screening mammogram for malignant neoplasm of breast (principal) | CPT/HCPCS: 77063; 77067 ==